=== PATIENT | female | born 1975 | race Caucasian/White ===

== ENCOUNTER 2018-12-30 16:18 | Emergency (ER) | payer MEDICAID, OTHER ==
[~2018-12-30] VITALS: Ht 170.2 cm; Wt 112.1 kg
[~2018-12-30 16:18] MED LIST: IBUP-974 PO; SULF1TAB12 PO
[2018-12-30 16:24] VITALS: BP 129/86
--- NOTE | 2018-12-30 16:48 | NUR ---
43 Y FEMALE BIB C/O N/V X1 DAY. PT REPORTS 12-13 EPISODES OF EMESIS IN PAST 24 HOURS. HEADACHE IN BACK OF HEAD AT 7/10 ACHING PAIN, RINGING IN EARS, AND DIZZYNESS. DENIES FEVER AND DIARRHEA. AA0X4. VSS AT THIS TIME. PT SPEAKING IN FULL, COMPLETE SENTENCES, GCS 15. PT PLACED ON MONITOR. BED IS DOWN, LOCKED, BED RAIL X 1, ERMD TO SEE PT. MEDHX:DM, HTN RX:LOSARTAN, METFORMIN
--- NOTE | 2018-12-30 16:58 | NUR ---
PT AMB TO BATHROOM WITH
--- NOTE | 2018-12-30 17:06 | NUR ---
DR CHACON AT BEDSIDE
[2018-12-30] MEDS ORDERED: ONDANSETRON 4 MG/2 ML VIAL IVP ONE ×2 (17:10→18:45)
[2018-12-30] MEDS ORDERED: NACL 0.9% 1,000 ML IV ONE ×2 (17:10→18:45)
[2018-12-30 17:41] LABS: BASOPHILS # (AUTO) 0.1 K/uL (0.00-0.22); BASOPHILS % (AUTO) 0.4 % (0.0-2.0); EOSINOPHILS % (AUTO) 0.3 % (0.0-4.0); HEMATOCRIT 32.2 % (36-48); LYMPHOCYTES # (AUTO) 1.6 K/uL (2.5-16.5); MEAN CORPUSCULAR HEMOGLOBIN 21 pg (27-31); MEAN CORPUSCULAR HGB CONC 31 g/dL (33-37); MEAN CORPUSCULAR VOLUME 68.7 fL (80-94); MONOCYTES # (AUTO) 0.5 K/uL (0.8-1.0); MONOCYTES % (AUTO) 3.9 % (1.7-9.3); NEUTROPHILS # (AUTO) 11.3 K/uL (1.8-7.7); NEUTROPHILS % (AUTO) 83.4 % (42.2-75.2); PLATELET COUNT (AUTO) 358 K/uL (140-450); RED BLOOD CELL COUNT(AUTO) 4.69 MIL/uL (4.20-5.40); RED CELL DISTRIBUTION WIDTH 18.8 % (11.6-13.7); WHITE BLOOD COUNT (AUTO) 13.5 K/uL (4.8-10.8)
[2018-12-30 18:00] LABS: ALBUMIN 3.9 g/dL (3.4-5.0); ANION GAP 13.3 (8-16); CARBON DIOXIDE 27.6 mmol/L (21-32); CREATININE 0.7 mg/dL (0.6-1.3); POTASSIUM 3.9 mmol/L (3.5-5.1); TOTAL BILIRUBIN 0.3 mg/dL (0.0-1.0)
--- NOTE | 2018-12-30 18:26 | NUR ---
vss at this time, aa0x4. pt sitting in bed, bedside
[2018-12-30] MEDS ORDERED: MECLIZINE 25 MG TAB PO ONE ×2 (18:45→19:30)
[2018-12-30 20:29] VITALS: BP 141/87
--- NOTE | 2018-12-30 20:30 | NUR ---
Patient discharged with v/s stable. Written and verbal after care instructions given and explained. Patient alert, oriented and verbalized understanding of instructions. Ambulatory with steady gait. All questions addressed prior to discharge. ID band removed. Patient advised to follow up with PMD. Rx of MECLIZINE, ZOFRAN given. Patient educated on indication of medication including possible reaction and side effects. Opportunity to ask questions provided and answered.
== END 2018-12-30 20:30 | disposition home or self-care (01) ==
LOC: MED 16:18
DX: R11.2 Nausea with vomiting, unspecified (principal); E11.9 Type 2 diabetes mellitus without complications; I10 Essential (primary) hypertension; Z79.2 Long term (current) use of antibiotics; Z79.1 Long term (current) use of non-steroidal anti-inflammatories (NSAID)
CPT/HCPCS: 36415; 80053; 81025; 82948; 83690; 85025; 93005; 96361; 96374; 96376; 99284; J2405; J7030; J8597

== ENCOUNTER 2021-06-05 10:04 | Emergency (ER) | payer MEDICAID ==
[~2021-06-05] VITALS: Ht 170.2 cm; Wt 104.8 kg
[~2021-06-05 10:04] MED LIST changes: +SULF-954 PO; -SULF1TAB12 PO
[2021-06-05 10:21] VITALS: BP 123/93
--- NOTE | 2021-06-05 10:32 | NUR ---
PENG. HANDED ON URINE CUP
--- NOTE | 2021-06-05 10:35 | NUR ---
BIB SELF C/O EPIGASTIC PAIN, DIZZINESS, NAUSEA X TODAY. BLOOD SUGAR 108 AT THIS TIME. PMH: DM. SKIN IS PINK/WARM/DRY; AAOX4 WITH EVEN AND STEADY GAIT; LUNGS CLEAR BL; HR EVEN AND REGULAR; PT DENIES ANY FEVER, CP, SOB, OR COUGH AT THIS TIME; PATIENT STATES PAIN OF 6/10 AT THIS TIME.
--- NOTE | 2021-06-05 11:51 | NUR ---
PT AMBULATED TO BED 8
--- NOTE | 2021-06-05 12:04 | NUR ---
DR. CHACON BEDSIDE EVALUATING PT
--- NOTE | 2021-06-05 12:07 | NUR ---
IV ESTABLISHED IN R AC - 20 G. BLOOD WORK COLLECTED FROM IV
--- NOTE | 2021-06-05 12:12 | NUR ---
BLOOD WORK COLLECTED AND WALKED OVER TO LAB. HANDED TO REGISTERED NURSING PROFESSOR LUIS
[2021-06-05] MEDS ORDERED: ONDANSETRON 4 MG/2 ML VIAL IVP ONE (12:15)
[2021-06-05] MEDS ORDERED: MECLIZINE 25 MG TAB PO ONE (12:15)
[2021-06-05] MEDS ORDERED: NACL 0.9% 1,000 ML IV ONE (12:15)
--- NOTE | 2021-06-05 12:16 | NUR ---
45 Y FEMALE WITH C/O EPIGASTIC PAIN, DIZZINESS, NAUSEA X TODAY. BLOOD SUGAR 108 AT THIS TIME. PT DENIES ANY FEVER, CP, SOB, OR COUGH AT THIS TIME; PATIENT STATES PAIN OF 6/10 AT THIS TIME. PT STATED THIS HAS HAPPENED BEFORE AND LASTED ABOUT 3 DAYS AND THEN RESOLVED ITSELF. PT IS UNABLE TO LAY FLAT DUE TO MAKING HER DIZZINESS AND NAUSEA WORSE. BREATH SOUNDS CLEAR AND BOWEL SOUNDS ACTIVE. SOME TENDERNESS WITH PALPATION IN MID-ADBOMEN. SKIN IS PINK/WARM/DRY; AAOX4 WITH EVEN AND STEADY GAIT; HR EVEN AND REGULAR PMH: FEMI PRO
[2021-06-05 12:39] LABS: BASOPHILS # (AUTO) 0.1 K/uL (0.00-0.22); EOSINOPHILS % (AUTO) 0.2 % (0.0-4.0); HEMATOCRIT 32.8 % (36-48); LYMPHOCYTES # (AUTO) 1.7 K/uL (2.5-16.5); LYMPHOCYTES % (AUTO) 16.1 % (20.5-51.1); MEAN CORPUSCULAR HEMOGLOBIN 22 pg (27-31); MEAN CORPUSCULAR HGB CONC 31 g/dL (33-37); MEAN CORPUSCULAR VOLUME 70.6 fL (80-94); MONOCYTES # (AUTO) 0.4 K/uL (0.8-1.0); MONOCYTES % (AUTO) 4.1 % (1.7-9.3); NEUTROPHILS # (AUTO) 8.5 K/uL (1.8-7.7); NEUTROPHILS % (AUTO) 78.6 % (42.2-75.2); PLATELET COUNT (AUTO) 334 K/uL (140-450); RED BLOOD CELL COUNT(AUTO) 4.64 MIL/uL (4.20-5.40); RED CELL DISTRIBUTION WIDTH 18.8 % (11.6-13.7); WHITE BLOOD COUNT (AUTO) 10.8 K/uL (4.8-10.8)
[2021-06-05 12:50] LABS: ANION GAP 10.4 (8-16); CARBON DIOXIDE 25.6 mmol/L (21-32); CREATININE 0.6 mg/dL (0.6-1.3); TOTAL BILIRUBIN 0.2 mg/dL (0.0-1.0)
[2021-06-05] MEDS ORDERED: MECL-303 PO (13:46)
[2021-06-05] MEDS ORDERED: ONDA-24 PO (13:46)
[2021-06-05 14:00] VITALS: BP 110/53
--- NOTE | 2021-06-05 14:00 | NUR ---
Patient discharged with v/s stable. Written and verbal after care instructions ABOUT VERTIGO given and explained. Patient alert, oriented and verbalized understanding of instructions. Ambulatory with steady gait. All questions addressed prior to discharge. ID band removed. Patient advised to follow up with PMD. Rx of ZOFRAN AND ANTIVERT given. Patient educated on indication of medication including possible reaction and side effects. Opportunity to ask questions provided and answered.
== END 2021-06-05 14:01 | disposition home or self-care (01) ==
LOC: MED 10:04
DX: R42 Dizziness and giddiness (principal); R11.2 Nausea with vomiting, unspecified; R53.1 Weakness; E11.9 Type 2 diabetes mellitus without complications; I10 Essential (primary) hypertension; Z79.899 Other long term (current) drug therapy
CPT/HCPCS: 36415; 80053; 81002; 81025; 82948; 83690; 85025; 96361; 96374; 99284; J2405; J7030; J8597

== ENCOUNTER 2021-11-28 03:27 | Emergency (ER) | payer MEDICAID ==
[~2021-11-28] VITALS: Ht 170.2 cm; Wt 106.6 kg
[~2021-11-28 03:27] MED LIST changes: +MECL-303 PO; +ONDA-188 PO
[2021-11-28 03:29] VITALS: BP 150/85
--- NOTE | 2021-11-28 03:35 | NUR ---
AMBULATES TO BED 8 FROM TRIAGE
--- NOTE | 2021-11-28 03:50 | NUR ---
46/F BIB SELF TO ED WITH CHIEF COMPLAINT OF VOMITING. A&OX4. VERBALLY RESPONSIVE AND ABLE TO COMMUNICATE NEEDS. PT IS AMBULATORY AND CONTINENT. SKIN IS INTACT. PER PT, VOMITING STARTED APPROXIMATELY 2100 ON 11/27/2021. PT VOMITTED X10 AT THIS TIME. PT STATES SHE WAS DIAGNOSED WITH VERTIGO LAST YEAR AND HAS PRN FOR MECLIZINE HCL. PT STATES THAT PRN DID NOT SEEM TO IMPROVE CONDITION. PT IS C/O OF FEELING EXTREMELY DIZZY WITH EXTREME RINGING IN HER EAR. PT REPORTS THAT THERE IS AN ACUTE ABD PAIN OF 5/10 FROM EXCESSIVE VOMITTING. ERMD AWARE. PMH: DM TYPE 2, VERTIGO ALLERGIES: DENIES MEDS: METFORMIN, MECLIZINE HCL
--- NOTE | 2021-11-28 04:06 | NUR ---
ERMD WITH PT AT BEDSIDE.
--- NOTE | 2021-11-28 04:12 | NUR ---
ACCUCHECK COMPLETED WITH A READING OF 137. TOLERATED WELL.
[2021-11-28] MEDS ORDERED: NACL 0.9% 1,000 ML IV ONE (04:25)
[2021-11-28] MEDS ORDERED: MECLIZINE 25 MG TAB PO ONE (04:25)
[2021-11-28] MEDS ORDERED: ONDANSETRON 4 MG/2 ML VIAL IVP ONE (04:25)
--- NOTE | 2021-11-28 04:40 | NUR ---
ESTABLISHED IV SITE ON RFA 22G. TOLERATED WELL.
--- NOTE | 2021-11-28 04:58 | NUR ---
SPONSORSHIP MANAGER W PT AT BEDSIDE.
[2021-11-28 05:02] LABS: APPEARANCE,URINE SL CLOUDY (CLEAR); BILIRUBIN,URINE NEGATIVE (NEGATIVE); BLOOD, URINE NEGATIVE (NEGATIVE); COLOR,URINE YELLOW (YELLOW); LEUKOCYTE ESTERASE ,URINE NEGATIVE (NEGATIVE); NITRITE, URINE NEGATIVE (NEGATIVE); UGLUCOSE NEGATIVE (NEGATIVE)
--- NOTE | 2021-11-28 05:02 | NUR ---
AGRICULTURAL SERVICE WORKER LEFT PT'S ROOM.
[2021-11-28 05:08] LABS: BASOPHILS % (AUTO) 0.4 % (0.0-2.0); EOSINOPHILS # (AUTO) 0.1 K/uL (0-0.4); EOSINOPHILS % (AUTO) 0.8 % (0.0-4.0); HEMATOCRIT 35.6 % (36-48); HEMOGLOBIN 11.7 g/dL (12.0-16.0); LYMPHOCYTES # (AUTO) 2.1 K/uL (2.5-16.5); LYMPHOCYTES % (AUTO) 23.2 % (20.5-51.1); MEAN CORPUSCULAR HEMOGLOBIN 26 pg (27-31); MEAN CORPUSCULAR HGB CONC 33 g/dL (33-37); MEAN CORPUSCULAR VOLUME 78.3 fL (80-94); MONOCYTES # (AUTO) 0.5 K/uL (0.8-1.0); MONOCYTES % (AUTO) 5.3 % (1.7-9.3); NEUTROPHILS # (AUTO) 6.3 K/uL (1.8-7.7); NEUTROPHILS % (AUTO) 70.3 % (42.2-75.2); PLATELET COUNT (AUTO) 317 K/uL (140-450); RED BLOOD CELL COUNT(AUTO) 4.55 MIL/uL (4.20-5.40); RED CELL DISTRIBUTION WIDTH 23.4 % (11.6-13.7)
--- NOTE | 2021-11-28 05:11 | NUR ---
PT'S AT BEDSIDE.
[2021-11-28 05:12] LABS: ALBUMIN 3.6 g/dL (3.4-5.0); ANION GAP 14.8 (8-16); CREATININE 0.8 mg/dL (0.6-1.3); MAGNESIUM 1.6 mg/dL (1.8-2.4); PHOSPHORUS 3.6 mg/dL (2.5-4.9); POTASSIUM 3.8 mmol/L (3.5-5.1); TOTAL BILIRUBIN 0.2 mg/dL (0.0-1.0)
--- NOTE | 2021-11-28 05:28 | NUR ---
VSS. PT REPORTS SHE FEELS A LITTLE BETTER AND DENIES PAIN.
--- NOTE | 2021-11-28 05:37 | NUR ---
PER HUGO BELCHER'S REQUEST, CALLED LAB TO FOLLOW UP CANCELLED TROPONIN ORDER. SPOKE WITH [employer]NOR. AUTO MECHANIC APPRENTICE STATED HE WILL RUN THE TEST.
[2021-11-28] MEDS ORDERED: MECL-303 PO (06:21)
[2021-11-28 06:26] VITALS: BP 119/76
--- NOTE | 2021-11-28 06:26 | NUR ---
Patient discharged with v/s stable. Written and verbal after care instructions given and explained. Patient alert, oriented and verbalized understanding of instructions. Ambulatory with steady gait. All questions addressed prior to discharge. ID band removed. IV REMOVED. CATHETER INTACT. Patient advised to follow up with PMD. Rx of MECLEZINE given. Patient REVIEWED on indication of medication including possible reaction and side effects. Opportunity to ask questions provided and answered.
--- NOTE | 2021-11-28 06:26 | NUR ---
The patient's care was reviewed and supervised by Huma He RN.
== END 2021-11-28 06:26 | disposition home or self-care (01) ==
LOC: MED 03:27
DX: R42 Dizziness and giddiness (principal); R11.10 Vomiting, unspecified; R10.13 Epigastric pain; E11.9 Type 2 diabetes mellitus without complications
CPT/HCPCS: 36415; 71045; 80053; 81003; 81025; 83735; 84100; 84484; 85025; 93005; 96361; 96374; 99285; J2405; J7030; J8597; Q0092

== ENCOUNTER 2024-01-03 13:24 | Emergency (ER) | payer MEDICAID ==
[~2024-01-03] VITALS: Ht 170.2 cm; Wt 117.0 kg
[2024-01-03 13:44] VITALS: BP 122/84; PULSE 76; RESP 16; TEMP 98; O2SAT 97
[2024-01-03] MEDS: NACL 0.9% 1,000 ML IV ONE (15:04)
[2024-01-03] MEDS: ACETAMINOPHEN EXTRA STRENGTH 500 MG TAB PO ONE (15:09)
[2024-01-03 15:11] VITALS: TEMP 98
[2024-01-03] MEDS: FAMOTIDINE 20 MG/2 ML VIAL IVP ONE (15:14)
[2024-01-03] MEDS: METOCLOPRAMIDE 10 MG/2 ML INJ VIAL IVP ONE (15:18)
[2024-01-03 15:35] LABS: BASOPHILS % (AUTO) 0.4 % (0.0-2.0); EOSINOPHILS # (AUTO) 0.2 K/uL (0-0.4); EOSINOPHILS % (AUTO) 1.6 % (0.0-4.0); HEMATOCRIT 36.6 % (36-48); HEMOGLOBIN 11.8 g/dL (12.0-16.0); LYMPHOCYTES % (AUTO) 30.8 % (20.5-51.1); MEAN CORPUSCULAR HEMOGLOBIN 25 pg (27-31); MEAN CORPUSCULAR HGB CONC 32 g/dL (33-37); MONOCYTES # (AUTO) 0.7 K/uL (0.8-1.0); MONOCYTES % (AUTO) 7.1 % (1.7-9.3); NEUTROPHILS # (AUTO) 5.8 K/uL (1.8-7.7); NEUTROPHILS % (AUTO) 60.1 % (42.2-75.2); PLATELET COUNT (AUTO) 308 K/uL (140-450); RED BLOOD CELL COUNT(AUTO) 4.64 MIL/uL (4.20-5.40); RED CELL DISTRIBUTION WIDTH 15.9 % (11.6-13.7); WHITE BLOOD COUNT (AUTO) 9.6 K/uL (4.8-10.8)
[2024-01-03 15:50] LABS: APPEARANCE,URINE CLEAR (CLEAR); BILIRUBIN,URINE NEGATIVE (NEGATIVE); BLOOD, URINE NEGATIVE (NEGATIVE); COLOR,URINE YELLOW (YELLOW); LEUKOCYTE ESTERASE ,URINE NEGATIVE (NEGATIVE); NITRITE, URINE NEGATIVE (NEGATIVE); PH,URINE 5.5 (5.0-9.0); PROTEIN,URINE NEGATIVE (NEGATIVE); UGLUCOSE NEGATIVE (NEGATIVE); UROBILINOGEN,URINE 0.2 EU/dL (0.2 - 1)
[2024-01-03 16:08] LABS: ALANINE AMINOTRANSFERASE 50 U/L (12-78); ALBUMIN 3.8 g/dL (3.4-5.0); ANION GAP 13.2 (8-16); ASPARTATE AMINOTRANSFERASE 35 U/L (15-37); CALCIUM 8.8 mg/dL (8.5-10.1); CARBON DIOXIDE 26.5 mmol/L (21-32); CHLORIDE 101 mmol/L (98-107); CREATININE 0.7 mg/dL (0.6-1.3); GFR ARICAN-AMERICAN 115 mL/min (>90); GFR NON ARICAN-AMERICAN 95 mL/min (>90); GLUCOSE 102 mg/dL (74-106); LIPASE 34 U/L (16-77); POTASSIUM 3.7 mmol/L (3.5-5.1); SODIUM SERUM 137 mmol/L (136-145); TOTAL BILIRUBIN 0.2 mg/dL (0.0-1.0); TOTAL PROTEIN, SERUM 7.9 g/dL (6.4-8.2); UREA NITROGEN, BLOOD 13 mg/dL (7-18)
[2024-01-03 16:37] LABS: ALKALINE PHOSPHATASE 106 U/L (50-136)
[2024-01-03 17:09] VITALS: BP 125/63; PULSE 70; RESP 16; O2SAT 97
[2024-01-03 18:01] LABS: FLU A ANTIGEN negative (NEGATIVE); FLU B ANTIGEN NEGATIVE (NEGATIVE)
== END 2024-01-03 18:24 | disposition home or self-care (01) ==
LOC: MED 13:24
DX: R42 Dizziness and giddiness (principal); R51.9 Headache, unspecified; R00.2 Palpitations; R06.02 Shortness of breath; E11.9 Type 2 diabetes mellitus without complications; I10 Essential (primary) hypertension; Z20.822 Contact with and (suspected) exposure to COVID-19; Z79.1 Long term (current) use of non-steroidal anti-inflammatories (NSAID); Z79.899 Other long term (current) drug therapy
CPT/HCPCS: 36415; 70450; 70496; 70498; 80053; 81003; 81025; 83690; 84484; 85025; 87426; 87804; 93005; 96361; 96374; 96375; 99285; J2765; J3490; J7030; Q9967